=== PATIENT | female | born 1960 | race Caucasian/White ===

== ENCOUNTER 2017-09-11 07:54 | Outpatient (CLI) | payer OTHER ==
--- NOTE | 2017-09-11 09:01 | CT ---
CT CHEST WITHOUT CONTRAST: Date: 09/11/17 Multiple axial tomograms obtained through chest without IV enhancement. Low dose screening protocol w as followed. HISTORY: History of tobacco use x20 years. FINDINGS: Lungs show mild hyperexpansion. No evidence of mass or nodule. No infiltrate or effusion. There are 2 or 3 tiny scattered peripheral nodules measuring in the 2-3 mm range. The mediastinum is unremarkable. IMPRESSION: Lung-RADS Category 2 - Benign Appearance. Recommend 1 year screening low dose chest CT. POS: [facility]
== END 2017-09-11 07:55 | disposition home or self-care (01) ==
LOC: CT 07:54
PROVIDERS: ATTEND Family Medicine
DX: Z12.2 Encounter for screening for malignant neoplasm of respiratory organs (principal); F17.210 Nicotine dependence, cigarettes, uncomplicated
CPT/HCPCS: G0297